=== PATIENT | female | born 1995 ===

== ENCOUNTER 2024-09-03 01:26 | Emergency (ER) | payer SELFPAY ==
[2024-09-03 01:27] VITALS: BMI 34.0
--- NOTE | 2024-09-03 01:56 | PC.NURSE ---
PER SECURITY PT WALKED OUT AND LEFT WITH VISITORS.
--- NOTE | 2024-09-03 02:18 | PD.EDADDENDU ---
Emergency Room Addendum Addendum Narrative: When I looked for the patient to start my evaluation, I was told the patient eloped. Bryn Rose MD
== END 2024-09-03 02:43 | disposition left against medical advice (07) ==
LOC: SERX 02:49
PROVIDERS: Emergency Provider Emergency Medicine
DX: Z02.89 Encounter for other administrative examinations (principal)
CPT/HCPCS: 99283